=== PATIENT | male | born 1975 | race Caucasian/White ===

== ENCOUNTER 2017-08-27 10:31 | Day surgery (SDC) | payer SELFPAY ==
[~2017-08-27 10:31] MED LIST: Acetaminophen/HYDROcodone 325-5 MG Tab PO PRN; Bupivacaine 0.25%/EPINEPHrine 1:200,000 10 ML SDV INJECT ONE; Bupivacaine 25%/EPINEPHrine/PF 30 ML ONE
--- NOTE | 2017-08-27 11:07 | PCM.PREANE ---
Preanesthetic Assessment - Anesthesia/Transfusion/Family Hx Anesthesia History: Prior Anesthesia Without Reaction Other Type of Anesthesia Reaction Comment: states with last shoulder surgery he had a hard time waking up Family History of Anesthesia Reaction: No Transfusion History: No Prior Transfusion(s) - Review of Systems General: No Symptoms Pulmonary: No Symptoms Cardiovascular: No Symptoms Gastrointestinal: No Symptoms Neurological: No Symptoms Other: Reports: None - Physical Assessment NPO Status Date: 08/26/17 NPO Status Time: 21:30 Height: 5 ft 6 in Weight: 72.575 kg ASA Class: 2 Mental Status: Alert & Oriented x3 Airway Class: Mallampati = 2 Dentition: Reports: Normal Dentition Thyro-Mental Finger Breadths: 3 Mouth Opening Finger Breadths: 3 ROM/Head Extension: Full Lungs: Clear to Auscultation, Normal Respiratory Effort Cardiovascular: Regular Rate, Regular Rhythm - Allergies Allergies/Adverse Reactions: Allergies Allergy/AdvReac Type Severity Reaction Status Date / Time Penicillins Allergy Swelling Verified 08/22/17 16:07 - Anesthesia Plan Free Text/Narrative:: GA with LMA vs MAC depending on patient positioning as the mass if on the Lt lateral portion of the neck. - Acknowledgements Anesthesia Type Planned: General Anesthesia, MAC Pt an Appropriate Candidate for the Planned Anesthesia: Yes Alternatives and Risks of Anesthesia Discussed w Pt/Guardian: Yes Pt/Guardian Understands and Agrees with Anesthesia Plan: Yes PreAnesthesia Questionnaire HEENT History: Reports: Other (See Below) Other HEENT History: wears glasses Cardiovascular History: Reports: None Respiratory History: Reports: Other (See Below) (Life long smoker) Gastrointestinal History: Reports: None Genitourinary History: Reports: None Musculoskeletal History: Reports: Fracture Other Musculoskeletal History: hx fx hand Neurological History: Reports: None Psychiatric History: Reports: None Endocrine/Metabolic History: Reports: None Hematologic History: Reports: None Immunologic History: Reports: None Oncologic (Cancer) History: Reports: None Dermatologic History: Reports: None - Infectious Disease History Infectious Disease History: Reports: None - Past Surgical History Head Surgeries/Procedures: Reports: None HEENT Surgical History: Reports: Adenoidectomy, Tonsillectomy Musculoskeletal Surgical History: Reports: Arthroscopic Knee, Shoulder Surgery Other Musculoskeletal Surgeries/Procedures:: hx knee arthroscopy, rt shoulder surgery x3 - SUBSTANCE USE Smoking Status *Q: Current Every Day Smoker (1PPD smoker x 26 years) Tobacco Use Within Last Twelve Months: Cigarettes Recreational Drug Use History: No - HOME MEDS Home Medications: Home Meds . [No Known Home Meds] 08/22/17 [History] - CURRENT (IN HOUSE) MEDS Current Meds: Current Medications Discontinued Medications Bupivacaine HCl/Epinephrine Bitart (Sensor Mpf 0.25%-Epi [id number]) Confirm Administered Dose 30 mls @ as directed .ROUTE .STK-MED ONE Stop: 08/27/17 07:48
[2017-08-27] MEDS ORDERED: Sodium Chloride 0.9% 10 ML Syringe FLUSH PRN (11:10)
[2017-08-27] MEDS ORDERED: Sodium Chloride 0.9% 2.5 ML Syringe FLUSH PRN (11:10)
[2017-08-27] MEDS ORDERED: Lactated Ringers 1,000 ML IV SCH (11:15)
[2017-08-27] MEDS ORDERED: Midazolam 1 MG/ML 2 ML SDV ONE (12:22)
[2017-08-27] MEDS ORDERED: fentaNYL 250 MCG/5 ML SDV ONE (12:22)
[2017-08-27] MEDS ORDERED: Propofol 200 MG/20 ML SDV ONE (12:22)
[2017-08-27] MEDS ORDERED: Lidocaine 2% 5 ML SDV ONE (12:22)
[2017-08-27] MEDS ORDERED: Ondansetron 4 MG/2 ML SDV ONE (12:26)
[2017-08-27] MEDS ORDERED: Clindamycin Phosphate in D5W 50 ML ONE (12:40)
[2017-08-27] MEDS ORDERED: Atropine 1 MG/ML SDV ONE (13:03)
[2017-08-27] MEDS ORDERED: Succinylcholine 200 MG/10 ML MDV ONE (13:03)
[2017-08-27] MEDS ORDERED: fentaNYL 100 MCG/2 ML SDV IVPUSH PRN (13:38)
--- NOTE | 2017-08-27 14:20 | PCM.POSTAN ---
POST ANESTHESIA ASSESSMENT - MENTAL STATUS Mental Status: Alert, Oriented - RESPIRATORY Respiratory Status: Respiratory Rate WNL, Airway Patent, O2 Saturation Stable - CARDIOVASCULAR CV Status: Pulse Rate WNL, Blood Pressure Stable - GASTROINTESTINAL GI Status: No Symptoms - POST OP HYDRATION Hydration Status: Adequate & Stable
--- NOTE | 2017-08-27 16:10 | PCM48HPAN ---
Post Anesthesia Note - EVALUATION WITHIN 48HRS OF ANESTHETIC Vital Signs in Normal Range: Yes Patient Participated in Evaluation: Yes Respiratory Function Stable: Yes Airway Patent: Yes Cardiovascular Function Stable: Yes Hydration Status Stable: Yes Pain Control Satisfactory: Yes Nausea and Vomiting Control Satisfactory: Yes Mental Status Recovered: Yes Resp Rate: 16
[2017-08-28] MEDS ORDERED: Clindamycin Phosphate in D5W 600 MG in Premix Bag 1 BAG IV ONE ×2 (08:00)
--- NOTE | 2017-08-29 11:19 | PCM.OPNOTE ---
- General Post-Op/Procedure Note Date of Surgery/Procedure: 08/27/17 Operative Procedure(s): excision of left neck mass/lymph node. 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
--- NOTE | 2017-08-29 17:15 | OR ---
SURGEON: ZAIRE EVANGELISTA MD DATE OF PROCEDURE: 08/27/2017 PREOPERATIVE DIAGNOSES: 1. Left neck mass. 2. Large lymph node with skin lesion. POSTOPERATIVE DIAGNOSES: 1. Left neck mass. 2. Large lymph node with skin lesion. PROCEDURES: 1. Excision of left neck mass/lymph node. 2. Excision of skin lesion of 2 cm total length with a 0.5 cm margin in elliptical fashion and thus a total length of 3.3 cm excision. ANESTHESIA: General LMA with local. ASSISTANT DRAFTER: GENET Mcdonough. INDICATIONS: Mr. Box presents to us with a left neck skin lesion that has been growing rapidly. Unfortunately, over the past several months, he has noted a large lymph node in his left neck area that has increased in size. It is not impinging on his chin and he feels like it is making his ear change in sensation as well. Risks and benefits of excision of the skin lesions to pathology as well as excision of the underlying lymph nodes, and studies of ultrasound that were significantly large were discussed with him. He would like to proceed. Risks were including, but not limited to, bleeding, infection, damage to underlying or overlying structures, possible need for future interventions, and possible scarring. PROCEDURE IN DETAIL: After informed consent was obtained and placed on the chart, the patient was brought to the operating theater, laid in supine position. After adequate general anesthesia was obtained, the area was prepped and draped and a time-out was completed to confirm side and site. 0.25% Marcaine with epinephrine was injected into the area and after adequate anesthesia, the ellipse of the skin was excised for a total length of 3.3 cm and dissection was carried circumferentially. Marking stitch was placed at 12 o'clock and this was then sent for pathology. Once sent for pathology, attention was then paid to dissection through skin and subcutaneous tissues to locate the lymph node. Dissection was first carried through the fascial layer and then circumferentially around the lesion itself. It was quite friable. It was clearly very enlarged, very dark in color, and very inflamed. Once adequately excised and sent for pathology, the area was copiously irrigated. Meticulous hemostasis was completed using Bovie electrocautery. Once adequate hemostasis, the area was irrigated and the wound was closed with a deep 3-0 Monocryl Stratafix for the fascia, a running 3-0 Stratafix for the dermis, and a running 4-0 subcuticular Stratafix for the skin. The wound was dressed with Steri-Strips. The patient tolerated this well. All counts and needles were correct at the end of the case. A Tegaderm border was used for dressing. FOLLOWUP INSTRUCTIONS: The patient will see us in one week, sooner if any problems, questions, or concerns. HENIKOLAI / VERONICA /[id number]
== END 2017-08-27 15:10 | disposition home or self-care (01) ==
LOC: MW.SDS 10:31
PROVIDERS: ATTEND Plastic Surgery
DX: C43.4 Malignant melanoma of scalp and neck (principal); C77.0 Secondary and unspecified malignant neoplasm of lymph nodes of head, face and neck; F17.210 Nicotine dependence, cigarettes, uncomplicated; Z88.0 Allergy status to penicillin
CPT/HCPCS: 11624; 38510; J0330; J0461; J2250; J2405; J2704; J3010; J7120; 88305; 88307